=== PATIENT | female | born 1950 | race Two or more races ===

== ENCOUNTER 2022-07-16 22:07 | Inpatient (IN) | payer MEDICARE, OTHER ==
[~2022-07-16] VITALS: Ht 149.9 cm; Wt 70.3 kg
[2022-07-16] MEDS ORDERED: OLANZAPINE 10 MG VIAL IM ONE ×2 (22:17→22:30)
--- NOTE | 2022-07-16 22:25 | NUR ---
Pt medically cleared by Dr. Garza.
[2022-07-16] MEDS ORDERED: QUET25TA PO (22:28)
[2022-07-16] MEDS ORDERED: FAMO20TA8 PO (22:28)
[2022-07-16] MEDS ORDERED: DIPH-530 PO (22:28)
[2022-07-16] MEDS ORDERED: LORA0.5T48 PO (23:36)
--- NOTE | 2022-07-16 23:40 | NUR ---
Gave report to An.
[2022-07-16 23:50] VITALS: BP 132/110
--- NOTE | 2022-07-16 23:58 | NUR ---
Pt transferred to MHU. Pt arrived to unit safely. All Pt belongings with Pt in MHU.
[2022-07-17] MEDS ORDERED: ACETAMINOPHEN 325 MG TABLET PO PRN (00:15)
[2022-07-17] MEDS ORDERED: MAG HYDROX/AL HYDROX/SIMETH 30 ML LIQUID UDC PO PRN (00:15)
[2022-07-17] MEDS ORDERED: MAGNESIUM HYDROXIDE 30 ML LIQUID UDC PO PRN (00:15)
[2022-07-17] MEDS: TEMAZEPAM 7.5 MG CAPSULE PO PRN ×2 (01:53→21:04)
--- NOTE | 2022-07-17 03:30 | NUR ---
GPS ADMISSION : Patient is a 71 year old female, brought to [place] ED by ambulance from [facility]. Patient is on a 5150 for GD. Per the hold, this patient went to the ER making delusional statements such as " There is a tube up my anus. There is a chip in my head. " When in our Emergency Department , the patient received a IM injection of Zyprexa 10 mg. This had zero affect on the patient. Upon face to face evaluation , the patient is restless, confused, aggressive and will not follow direction. The Tele-renovation plant supervisor was used to communicate with the patient d/t she is primarily Romanian speaking but can speak some Pashto as well. The renovation plant supervisor # [id number], was utilized to explain the Unit and the situation of the hold. The Advisement and Plan of care were discussed. The patient was given an opportunity to ask questions but unfortunately it became quit apparent to this senior mortgage underwriter and other staff, that this patient is forgetful , non compliant and resistant to care. A patients rights handbook was provided. It is difficult to reorient, redirect or calm this patient down. The SOLE LAYER Tena Riddle was called 2 times, but no response or call back received. The patient has had zero sleep and continues to be restless , despite PRN medications. Safety Stratiges are in place.
[2022-07-17 04:30] VITALS: BP 140/71
[2022-07-17] MEDS: LORAZEPAM 1 MG TABLET PO PRN ×2 (06:07→19:03)
[2022-07-17 08:01] VITALS: BP 110/56
--- NOTE | 2022-07-17 11:58 | NUR ---
Gps/Senior Cost Accountant- Unable to get informations at this time sleeping arousable, but goes right back to sleep. no signs of any distress, will attempt to wake up patient at a later time, report obtained from previous shift patient has no sleep from last night
[2022-07-17] MEDS: risperiDONE-M 0.5 MG TAB.RAPDIS PO SCH ×2 (14:43→21:04)
--- NOTE | 2022-07-17 15:05 | NUR ---
Gps/Lozenge Dough Mixer- Offered ativan 1 mg po , refused, , patient was restless, wanders to other patient's room, constantly needing to be redirected. pacing around. Safety reviewed continue to emphasized. Set up with her hygiene . Requested shower, when taken to shower room, patient refused to shower, Confused, was called able to talked to patient for few minutes but patient hanged up on him. Redirected back to her room, reoriented from time to time.
--- NOTE | 2022-07-17 15:05 | NUR ---
Gps/Shirt Cleaner- Medication -Ativan 1 mg po wasted w/ RN Rocio (float from 3rd floor) patient refused
[2022-07-17 16:07] VITALS: BP 104/55
[2022-07-17] MEDS: FAMOTIDINE 20 MG TABLET PO SCH (16:41)
--- NOTE | 2022-07-17 18:49 | NUR ---
Gps/Ekg Monitor Tech- Nephew called want to put Roland (Niece) as one of the personnel officer r/t patient;s does not speak Guatemalan ([phone])
[2022-07-17 19:43] VITALS: BP 112/66
--- NOTE | 2022-07-18 02:54 | NUR ---
Patient wondered around the fraser at the beginning of the shift. Disoriented and uncooperative. This insurance underwriter sales had difficulty when administering the PM medications. The patient required education and encouragement for a good bit of time. The patient continues to be delusional, noncooperative, hard to redirect, paranoid and confused. Safety Stratiges are in place. Continuing to monitor closely for compliance and behavior escalation.
--- NOTE | 2022-07-18 07:00 | NUR ---
GPS Nursing notes: Patient in room awake with no S/S of discomforts noted. denies pain or discomforts.
[2022-07-18 07:47] VITALS: BP 156/92
[2022-07-18] MEDS: risperiDONE-M 0.5 MG TAB.RAPDIS PO SCH ×3 (08:00→20:21)
--- NOTE | 2022-07-18 08:37 | NUR ---
GPS Nursing notes: 5250 [facility] Request: Staff gave a copy of 5250 to patient. Explained 5250 and informed patient that a certification review hearing will be held within four days and patient 's right advocate will call her to provide assistance with the hearing and to answer her questions. The court has been notified of this certification via [facility] portal on this day.
[2022-07-18] MEDS: FAMOTIDINE 20 MG TABLET PO SCH ×2 (08:54→17:00)
[2022-07-18] MEDS ORDERED: LORAZEPAM 1 MG TABLET PO PRN (09:15)
--- NOTE | 2022-07-18 14:04 | NUR ---
GPS: Nursing Notes: Thought Disorder: Patient is awake and responding to her name, impaired judgment, poor impulse control, refusing her medications, isolative and withdrawn in her room, stated "I am hearing voices...No, I am not taking those pills..", encouraged with her and social and human services assistant to take her medication several times during the day, but continue to refuse her medication, gets easily anxious when redirected, unable to formulate a viable plan for self care, continue to monitor for safety, continue with treatment plan.
--- NOTE | 2022-07-18 14:42 | NUR ---
JULIANNE Initial Discharge Note: Pt currently resides at home with her located at [address] [place] [address] [place] [phone] ([phone]). JULIANNE spoke with pt's , Efrain in person who stated to this SW to please help the pt with any treatment she needs. Maikolbaroncesilia stated everything she is stating is not the reality. As of now, pt's discharge remains to return home with her . JULIANNE will continue to work with pt, and MD to ensure a safe and proper discharge plan.
--- NOTE | 2022-07-18 14:43 | NUR ---
SW Family Contact: SW spoke with pt's , Efrain [phone] in person who stated to this SW to please help the pt with any treatment she needs. Efrain stated everything she is stating is not the reality. As of now, pt's discharge remains to return home with her .
[2022-07-18 16:30] VITALS: BP 203/134
[2022-07-18] MEDS: LORAZEPAM 0.5 MG TABLET PO PRN (16:57)
[2022-07-18] MEDS: CLONIDINE HCL 0.1 MG TABLET PO PRN (16:57)
[2022-07-18 18:29] VITALS: BP 127/77
[2022-07-18 19:50] VITALS: BP 123/64
--- NOTE | 2022-07-18 20:50 | NUR ---
Pt received socializing with peer. Pt refused scheduled PO medication. Risks and benefits explained but continued to refuse. Denies pain or discomfort. In no acute distress.
[2022-07-19 07:30] VITALS: BP 168/63
[2022-07-19] MEDS: risperiDONE-M 0.5 MG TAB.RAPDIS PO SCH ×4 (08:00→21:04)
[2022-07-19] MEDS: LORAZEPAM 0.5 MG TABLET PO PRN ×2 (08:27→21:05)
[2022-07-19] MEDS: FAMOTIDINE 20 MG TABLET PO SCH ×2 (08:29→16:04)
[2022-07-19] MEDS: CLONIDINE HCL 0.1 MG TABLET PO PRN ×3 (08:29→16:04)
[2022-07-19] MEDS ORDERED: METOPROLOL TARTRATE 25 MG TABLET PO ONE (09:00)
--- NOTE | 2022-07-19 09:41 | NUR ---
Clinical SW Note: Pt appeared verbally abusive, intrusive and threatening. Pt was yelling stating, "I will walk out of this door and none of you can stop me you understand me!?" Pt refused to step away from this SW after being asked and security was called. Pt continually stated, "I have no problem I will come after all of you when I get out!"
[2022-07-19] MEDS ORDERED: OLANZAPINE 10 MG VIAL IM STA (09:42)
--- NOTE | 2022-07-19 09:53 | NUR ---
Clinical SW Note: Pt appeared verbally abusive again in the SW's office asking to be let out. Pt yelled, "You told me I can leave yesterday and you lied to me!" Security was in SW's office to ensure safety protocols. Pt remained calm and stated "I will leave here soon and that's end of story!"
[2022-07-19] MEDS: BENZTROPINE MESYLATE 0.5 MG TABLET PO SCH ×2 (10:45→16:04)
[2022-07-19 11:54] VITALS: BP 135/69
--- NOTE | 2022-07-19 14:07 | NUR ---
GPS: Nursing Notes: Thought Disorder: Patient is awake and responding to her name, gets easily irritable when redirected, argumentative with the psychiatrist and socially responsible investment adviser this AM, unpredictable behavior, unable to formulate a viable plan for self care, selectively refusing her medications. Asking for a shower, but when staff set the shower the patient refused to shower. Refusing to participate in therapeutic groups, no interactions with peers, continue to monitor for safety, continue with treatment plan.
[2022-07-19 15:58] VITALS: BP 186/92
[2022-07-19 20:00] VITALS: BP 120/72
--- NOTE | 2022-07-19 20:00 | NUR ---
GPS: NURSING NOTE: PT AWAKE TALKING WITH PEERS. REFUSED EVENING MEDICATION OF BENARDRYL STATES: I HAVE NO ALLERGY'. PT ISOLATIVE IN ROOM WRITING.AND CAME OUT OF ROOM TO REQUEST BLANKETS. PT IS STILL ON A 14 DAY HOLD WHICH EXPIRES ON 08/01/2022. NO SIGNS OF RESPIRATORY DISTRESS NOTED. WILL CONTINUE TO MONITOR FOR FALL AND SAFETY ALONG WITH CONTINUING TREATMENT PLAN.
[2022-07-19] MEDS: diphenhydrAMINE 25 MG CAP PO PRN (21:05)
[2022-07-20 07:30] VITALS: BP 167/95
[2022-07-20] MEDS: risperiDONE-M 0.5 MG TAB.RAPDIS PO SCH ×4 (08:00→22:00)
[2022-07-20] MEDS: BENZTROPINE MESYLATE 0.5 MG TABLET PO SCH ×3 (09:00→17:00)
[2022-07-20] MEDS: CETIRIZINE HCL 10 MG TABLET PO SCH (09:00)
[2022-07-20] MEDS ORDERED: METOPROLOL TARTRATE 25 MG TABLET PO SCH (09:00)
[2022-07-20] MEDS: FAMOTIDINE 20 MG TABLET PO SCH ×2 (09:00→17:00)
--- NOTE | 2022-07-20 11:51 | NUR ---
Firearms Report: China And Silverware Salesperson completed and submitted a DOJ firearms report for 5150 grave disability certifications. A copy of report has been placed in patient chart.
--- NOTE | 2022-07-20 14:03 | NUR ---
JULIANNE PC Hearing: Patient had 5250 probable cause hearing today and it was upheld for a danger to others and grave disability.
[2022-07-20] MEDS: CLONIDINE HCL 0.1 MG TABLET PO PRN (15:09)
[2022-07-20 15:13] VITALS: BP 172/95
--- NOTE | 2022-07-20 15:18 | NUR ---
Received patient sleeping in her room. Patient is A/O X 2 - 3 to person, place. Patient is suspicious and selective with medications, refuses Psych medications and just takes Blood pressure medications. Patient is isolative, withdrawn, does not engage in group activities or conversations. Patient blood pressure is 172/95, PRN Clonidine 0.1 mg is given at 15:09, will be monitored for effectiveness. Patient is ambulatory, continent, does not require assistance with ADL. Patient is encourage to verbalize concerns. Fall and safety precautions implemented.
--- NOTE | 2022-07-20 15:29 | NUR ---
[facility] hearing is schedule for tomorrow 07/21/22 at 15:00, Psychiatrist was informed.
--- NOTE | 2022-07-20 15:33 | NUR ---
Clinical SW Note: Pt expressed to SW that she will not take the Risperdal because she is allergic to it and caused her a lot of anxiety. SW informed psychiatrist and nurses. Pt stated, "I will only take my daily medications and not psychotic because I don't have mental problems." Pt added, "No one can make me take any medication I don't want you understand me!? Not you, not the Doctor and not my " SW informed Psychiatrist, pts [facility] and nursing.
[2022-07-20 16:00] VITALS: BP 145/85
[2022-07-20 19:56] VITALS: BP 143/77
--- NOTE | 2022-07-20 21:41 | NUR ---
Patient requested [facility], notify Jose Alejo, with order of one time only, for tonight.
[2022-07-20] MEDS ORDERED: CETIRIZINE HCL 10 MG TABLET PO ONE (21:45)
[2022-07-20] MEDS: METOPROLOL TARTRATE 25 MG TABLET PO SCH (21:49)
[2022-07-20] MEDS: LORAZEPAM 0.5 MG TABLET PO PRN (22:06)
--- NOTE | 2022-07-20 22:30 | NUR ---
Patient awake refused resperdal pm dose, requested Ativan instead. Patient has own reason for not taking risperdal.
[2022-07-21] MEDS: risperiDONE-M 0.5 MG TAB.RAPDIS PO SCH ×4 (08:00→20:25)
[2022-07-21 08:25] VITALS: BP 149/78
[2022-07-21] MEDS: METOPROLOL TARTRATE 25 MG TABLET PO SCH ×2 (08:54→20:16)
[2022-07-21] MEDS: CETIRIZINE HCL 10 MG TABLET PO SCH (09:00)
[2022-07-21] MEDS: FAMOTIDINE 20 MG TABLET PO SCH ×2 (09:00→17:00)
[2022-07-21] MEDS: BENZTROPINE MESYLATE 0.5 MG TABLET PO SCH ×3 (09:00→17:00)
[2022-07-21] MEDS: LORAZEPAM 0.5 MG TABLET PO PRN ×2 (13:41→20:15)
[2022-07-21 15:16] VITALS: BP 151/85
--- NOTE | 2022-07-21 16:08 | NUR ---
Received patient awake in her room. Patient is A/O X 2 to person, place. Patient is argumentative, talkative when approached, confused and disorganized at times. 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 Patient is compliant with BP medications only. Active listening provided. Fall and safety precautions implemented.
[2022-07-21 19:52] VITALS: BP 169/77
[2022-07-21] MEDS: diphenhydrAMINE 25 MG CAP PO PRN (20:16)
--- NOTE | 2022-07-21 21:40 | NUR ---
Patient requested a" Lorazepam" an " Allergy medicine " and " Metoprol " at the start of the shift. The patients b/p was elevated at that time. The patient did however, adamantly refuse to take the PM Risperdal that is ordered , despite encouragement and education. This patient gets increasingly confused, uncooperative an easily irritated as the night progresses. Safety Stratiges are in place.. Reorientation and reassurance from the staff is ongoing.
[2022-07-22 08:00] VITALS: BP 164/96
[2022-07-22] MEDS: risperiDONE-M 0.5 MG TAB.RAPDIS PO SCH ×3 (08:00→21:00)
[2022-07-22] MEDS: METOPROLOL TARTRATE 25 MG TABLET PO SCH ×2 (08:13→21:09)
[2022-07-22] MEDS: BENZTROPINE MESYLATE 0.5 MG TABLET PO SCH ×3 (08:16→17:00)
[2022-07-22] MEDS: CETIRIZINE HCL 10 MG TABLET PO SCH ×2 (08:17→11:35)
[2022-07-22] MEDS: FAMOTIDINE 20 MG TABLET PO SCH ×2 (08:17→17:00)
[2022-07-22] MEDS: AMLODIPINE 5 MG TABLET PO SCH ×2 (11:00→11:13)
--- NOTE | 2022-07-22 14:44 | NUR ---
Received patient awake in her room. Patient is selective with medications, argumentative, suspicious, forgetful, preoccupied. Patient is A/O X 3 to person, place. Patient refuses Psych medications and Norvasc 5 mg in the morning. Patient states "I'm allergic to Norvasc, I prefer Clonidine or Metoprolol". Patient refuses scheduled Zyrtec 5 mg in the morning, but requested later on. Patient states "I touched klenex and now I'm itching because I'm allergic to it. I need Zyrtec". Patient is offered PRN Benadryl 25 mg but refused it. Patient states " I don't like Benadryl because makes me sleepy". Patient is given Zyrtec 5 mg at 11:35AM. Active listening provided. Fall and safety precautions implemented.
--- NOTE | 2022-07-22 15:14 | NUR ---
JULIANNE Discharge Update: JULIANNE spoke with pt's Efrain in person regarding pts hearing at 4pm today. Efrain is aware and agreeable for the hearing to take place to help treat the pt. JULIANNE will continue to keep the informed. Efrain stated the discharge plan for the pt to return home with him remains the same.
[2022-07-22] MEDS: LORAZEPAM 0.5 MG TABLET PO PRN (17:07)
--- NOTE | 2022-07-22 17:15 | NUR ---
Patient is given Ativan 0.5 mg for anxiety and agitation at 17:07, will be monitored for effectiveness.
[2022-07-22] MEDS: CLONIDINE HCL 0.1 MG TABLET PO PRN (18:13)
--- NOTE | 2022-07-22 18:18 | NUR ---
Patient is given PRN Clonidine 0.1 mg at 18:13 for BP of 182/92 P 76, will be monitored for effectiveness.
[2022-07-22 20:53] VITALS: BP 116/77
[2022-07-22] MEDS: diphenhydrAMINE 25 MG CAP PO PRN (21:09)
[2022-07-22] MEDS: OLANZAPINE 10 MG VIAL IM PRN (21:15)
--- NOTE | 2022-07-22 21:58 | NUR ---
Patient refused to take the PO Risperdal , despite education or encouragement and chose to receive the IM injection Zyprexa per the [facility] order instead. The patient complied freely and no security was needed. VS are stable and the injection was tolerated well. Safety Stratiges remain in place. The patient was anxious at the start of the shift, but this commercial real estate underwriter has been able to calm the patient and redirect her with ease. No acute issues noted at this time. Reassurance provided as needed.
[2022-07-23 07:34] VITALS: BP 165/86
[2022-07-23] MEDS ORDERED: risperiDONE-M 0.5 MG TAB.RAPDIS PO SCH (08:00)
[2022-07-23] MEDS: CLONIDINE HCL 0.1 MG TABLET PO PRN ×2 (08:45→17:33)
[2022-07-23] MEDS: LORAZEPAM 0.5 MG TABLET PO PRN (08:45)
[2022-07-23] MEDS: CETIRIZINE HCL 10 MG TABLET PO SCH (08:46)
[2022-07-23] MEDS: BENZTROPINE MESYLATE 0.5 MG TABLET PO SCH ×3 (08:46→17:00)
[2022-07-23] MEDS: METOPROLOL TARTRATE 25 MG TABLET PO SCH ×2 (08:46→20:56)
[2022-07-23] MEDS: FAMOTIDINE 20 MG TABLET PO SCH ×2 (08:47→17:00)
[2022-07-23] MEDS: OLANZAPINE 10 MG VIAL IM PRN ×3 (08:47→20:57)
[2022-07-23] MEDS: AMLODIPINE 5 MG TABLET PO SCH (08:47)
[2022-07-23] MEDS: ENSURE ENLIVE (VAN) 240 ML LIQUID PO SCH (11:56)
--- NOTE | 2022-07-23 15:42 | NUR ---
GPS: Nursing Notes: Thought Disorder: Patient is awake and responding to her name, gets easily irritable when redirected, continue to refuse her Risperdal PO. Per Carlos and psychiatrist's order, staff given her Zyprexa IM, no interactions with peers, poor anger management at times, unable to formulate a viable plan for self care, continue to monitor for safety, continue with treatment plan.
[2022-07-23 16:07] VITALS: BP 154/87
[2022-07-23] MEDS: risperiDONE-M 0.5 MG TAB.RAPDIS PO SCH ×2 (17:00→20:56)
[2022-07-23 20:00] VITALS: BP 113/65
[2022-07-23] MEDS: diphenhydrAMINE 25 MG CAP PO PRN (20:56)
--- NOTE | 2022-07-23 21:35 | NUR ---
Patient is suspicious, angry and argumentative. Refused to take PO Risperdal but willingly did take the IM injection of Zyprexa per Carlos. This teletypewriter installer spent time to reassure and deescalate the patient by speaking calmly and making every effort to understand her needs at that time. Unfortunately, the patient is annoyed with the room mate and visa versa. VS are stable and safety stratiges remain in place. The patient refused to eat snack, however a pitcher of water was provided and the patient is drinking fluids well. Continuing with monitoring this patient irritable moods for possible behavior escalation and for medication compliance. Reorientation to the environment and plan of care are ongoing
[2022-07-24 07:43] VITALS: BP 144/73
[2022-07-24] MEDS: BENZTROPINE MESYLATE 0.5 MG TABLET PO SCH ×3 (08:51→16:58)
[2022-07-24] MEDS: ENSURE ENLIVE (VAN) 240 ML LIQUID PO SCH (08:52)
[2022-07-24] MEDS: AMLODIPINE 5 MG TABLET PO SCH (08:54)
[2022-07-24] MEDS: METOPROLOL TARTRATE 25 MG TABLET PO SCH ×2 (08:54→20:35)
[2022-07-24] MEDS: CETIRIZINE HCL 10 MG TABLET PO SCH (08:54)
[2022-07-24] MEDS: risperiDONE-M 0.5 MG TAB.RAPDIS PO SCH ×5 (08:54→21:00)
[2022-07-24] MEDS: FAMOTIDINE 20 MG TABLET PO SCH ×2 (08:54→16:58)
[2022-07-24] MEDS: OLANZAPINE 10 MG VIAL IM PRN ×3 (08:55→21:09)
[2022-07-24] MEDS: CLONIDINE HCL 0.1 MG TABLET PO PRN (13:22)
[2022-07-24] MEDS: LORAZEPAM 0.5 MG TABLET PO PRN (13:22)
--- NOTE | 2022-07-24 14:06 | NUR ---
GPS: Nursing Notes: Thought Disorder: Patient is awake and responding to her name, refusing her Risperdal PO, but willing to take Zyprexa IM per Rifly and psychiatrist's order, following staff directions, refusing to participate in therapeutic groups, gets easily irritable when redirected, unable to formulate a viable plan for self care, unkempt appearance, denies AH/VH, continue to monitor for safety, continue with treatment plan.
[2022-07-24 16:14] VITALS: BP 132/80
[2022-07-24 19:53] VITALS: BP 140/71
--- NOTE | 2022-07-24 23:22 | NUR ---
GPS: NURSING NOTE: THOUGHT DISORDER: PT IS IN ROOM ISOLATIIVE FROM PEERS MINIMAL INTERACTION WITH PEERS. AFTERWARDS PATIENT TOOK MEDICATION BUT RISPERDONE 1MG PATIENT REISE STATES: I WILL TAKE INJECTION NOT RSIPERDONE. LATER DURING SHIFT PT REQUESTED INFORMATION ON RISPERDONE. INFORMED PATIENT I WILL GET FOR IN THE AM OR HAVE AM SHIFT TO GIVE INFORMATION ON MEDICATION. PT IS DISHEVELED WON'T COMB HAIR WILL CONTINUE PLAN OF CARE AND GO BACK IN ROOM TO ASSIST PATIENT.
[2022-07-25 08:17] VITALS: BP 172/89
[2022-07-25] MEDS: BENZTROPINE MESYLATE 0.5 MG TABLET PO SCH ×3 (08:39→16:31)
[2022-07-25] MEDS: ENSURE ENLIVE (VAN) 240 ML LIQUID PO SCH (08:39)
[2022-07-25] MEDS: CETIRIZINE HCL 10 MG TABLET PO SCH (08:40)
[2022-07-25] MEDS: METOPROLOL TARTRATE 25 MG TABLET PO SCH ×2 (08:40→20:47)
[2022-07-25] MEDS: AMLODIPINE 5 MG TABLET PO SCH (08:42)
[2022-07-25] MEDS: risperiDONE-M 0.5 MG TAB.RAPDIS PO SCH ×3 (08:42→20:47)
[2022-07-25] MEDS: FAMOTIDINE 20 MG TABLET PO SCH ×2 (08:42→16:32)
[2022-07-25] MEDS: OLANZAPINE 10 MG VIAL IM PRN ×2 (08:43→16:44)
[2022-07-25] MEDS: CLONIDINE HCL 0.1 MG TABLET PO PRN (08:43)
[2022-07-25] MEDS: LORAZEPAM 0.5 MG TABLET PO PRN ×2 (08:51→20:45)
[2022-07-25 09:30] VITALS: BP 128/87
--- NOTE | 2022-07-25 13:39 | NUR ---
GPS: Nursing Notes: Thought Disorder: Patient is awake and responding to her name, continue to refuse her Risperdal PO. Patient preferred to have Zyprexa IM per psychiatrist's order and upheld Carlos, unable to formulate a viable plan for self care, internally preoccupied, but denies AH/VH, unkempt appearance, no interactions with peers, showered today, no aggressive behavior noted, continue to monitor for safety, continue with treatment plan.
[2022-07-25 16:18] VITALS: BP 142/63
[2022-07-25 19:46] VITALS: BP 134/83
--- NOTE | 2022-07-26 01:27 | NUR ---
Patient was willing to take the PO Risperdal , instead of the IM injection, as ordered per the Riese. The patient ate a snack, asked for " Lorazepam " by name , and has been calm with this marine underwriter. No issues with the roommate noticed tonight. The patient is ambulatory in the unit, gait steady. Education, encouragement and reorientation is ongoing. Safety Stratiges are in place. No acute issues noted at this time. VS were stable this PM. Continuing to monitor for irritability , delusions and medication compliance.
[2022-07-26] MEDS: diphenhydrAMINE 25 MG CAP PO PRN ×2 (04:35→21:24)
[2022-07-26] MEDS: LORAZEPAM 0.5 MG TABLET PO PRN (04:36)
[2022-07-26 08:02] VITALS: BP 170/83
[2022-07-26] MEDS: CLONIDINE HCL 0.1 MG TABLET PO PRN (08:48)
[2022-07-26] MEDS: CETIRIZINE HCL 10 MG TABLET PO SCH (08:48)
[2022-07-26] MEDS: ENSURE ENLIVE (VAN) 240 ML LIQUID PO SCH (08:49)
[2022-07-26] MEDS: METOPROLOL TARTRATE 25 MG TABLET PO SCH ×2 (08:49→21:09)
[2022-07-26] MEDS: FAMOTIDINE 20 MG TABLET PO SCH ×2 (08:49→16:24)
[2022-07-26] MEDS: AMLODIPINE 5 MG TABLET PO SCH (08:49)
[2022-07-26] MEDS: BENZTROPINE MESYLATE 0.5 MG TABLET PO SCH ×3 (08:49→16:24)
[2022-07-26] MEDS: risperiDONE-M 0.5 MG TAB.RAPDIS PO SCH ×2 (08:50→16:24)
[2022-07-26] MEDS: OLANZAPINE 10 MG VIAL IM PRN ×2 (08:59→17:21)
[2022-07-26] MEDS ORDERED: TEMAZEPAM 7.5 MG CAPSULE PO PRN (09:30)
[2022-07-26] MEDS ORDERED: PALIPERIDONE PALMITATE 117 MG/0.75 ML SYRINGE IM ONE (09:30)
[2022-07-26] MEDS ORDERED: PALIPERIDONE PALMITATE 234 MG/1.5 ML IM ONE (10:00)
--- NOTE | 2022-07-26 14:28 | NUR ---
GPS: Nursing Notes: Thought Disorder: Patient is awake and responding to her name, argumentative this am, stated "Risperdal no good..No sleep last night.." continue to refuse Risperdal this AM, given Zyprexa IM per Rifly and psychiatrist's order, no s/e form medication noted, needs prompting to participate in therapeutic groups, ambulatory and continent with BM and urine, unable to formulate a viable plan for self care, continue to monitor for safety, continue with treatment plan.
[2022-07-26 16:09] VITALS: BP 148/89
[2022-07-26 20:00] VITALS: BP 140/75
--- NOTE | 2022-07-27 06:31 | NUR ---
Patient was calm and cooperative last night. A PRN Benadryl was given per the patients request. A snack was provided and the patient slept 6.15 so far. No acute behavioral problems observed. Safety Stratiges are in place. Continuing with plan of care, too encourage medication compliance and assist patient with any needs. Reassurance and reorientation is ongoing.
[2022-07-27 07:45] VITALS: BP 146/73
[2022-07-27] MEDS: BENZTROPINE MESYLATE 0.5 MG TABLET PO SCH ×3 (08:40→17:00)
[2022-07-27] MEDS: METOPROLOL TARTRATE 25 MG TABLET PO SCH ×2 (08:41→20:59)
[2022-07-27] MEDS: CETIRIZINE HCL 10 MG TABLET PO SCH (08:43)
[2022-07-27] MEDS: risperiDONE-M 0.5 MG TAB.RAPDIS PO SCH ×2 (08:46→17:00)
[2022-07-27] MEDS: FAMOTIDINE 20 MG TABLET PO SCH ×2 (08:46→17:00)
[2022-07-27] MEDS: AMLODIPINE 5 MG TABLET PO SCH (08:47)
[2022-07-27] MEDS: ENSURE ENLIVE (VAN) 240 ML LIQUID PO SCH (09:00)
[2022-07-27] MEDS: OLANZAPINE 10 MG VIAL IM PRN ×2 (09:00→17:36)
--- NOTE | 2022-07-27 12:06 | NUR ---
JULIANNE Discharge Update: JULIANNE spoke with pt's , Efrain ([phone]) and stated that pt is cleared for discharge to return home with her located at [address] [place] [address] [place] [address] ([phone]) next Monday08/02/22. JULIANNE stated per psychiatrist, Dr. Calderón, pt will receive her second dose of Invega Sustenna on Monday and be able to discharge on Monday. Efrain was grateful for the update and stated he will be able to provide transportation home at 12PM on Monday.
[2022-07-27 15:17] VITALS: BP 152/85
--- NOTE | 2022-07-27 18:10 | NUR ---
Received pt in room , Pt is argumentative, when giving her medications. Pt is selective with medication. Pt stated " Im allergic Risperdal and Zyprexa." Pt refuse Risperdal, Pt stated " i do not take that is no good" and was given Zyprexa IM per Riese and psychiatrist's order, no signs and symptoms from medication noted, no sings and symptoms of an allergic reaction noted, no acute distress noted. Pt needs prompting to participate in therapeutic groups, ambulatory . Pt is unable to formulate a viable plan for self care. Reassurance provided. Continue to monitor for safety, continue with treatment plan.
[2022-07-27 19:53] VITALS: BP 198/102
[2022-07-27] MEDS: CLONIDINE HCL 0.1 MG TABLET PO PRN (20:07)
[2022-07-27 20:50] VITALS: BP 173/89
[2022-07-27] MEDS: LORAZEPAM 0.5 MG TABLET PO PRN (22:19)
--- NOTE | 2022-07-28 06:07 | NUR ---
Patients blood pressure was elevated at the start of the shift. A PRN Clonidine was given. At the post check, the blood pressure remained elevated. The routine 2100 dose of Metoprol was administered. 40 minutes later, the blood pressure came down to a normal range of 138/ 72. ( see VS flow sheet for exact readings). Safety Stratiges are in place. Patient slept 4.30 hours. Patient refused to take a sleeping pill ,despite encouragement and education on the importance of rest.
[2022-07-28 07:30] VITALS: BP 141/65
[2022-07-28] MEDS: BENZTROPINE MESYLATE 0.5 MG TABLET PO SCH ×3 (09:00→17:00)
[2022-07-28] MEDS: risperiDONE-M 0.5 MG TAB.RAPDIS PO SCH ×2 (09:00→17:00)
[2022-07-28] MEDS: CETIRIZINE HCL 10 MG TABLET PO SCH (09:00)
[2022-07-28] MEDS: FAMOTIDINE 20 MG TABLET PO SCH ×2 (09:00→17:00)
[2022-07-28] MEDS: AMLODIPINE 5 MG TABLET PO SCH (09:00)
[2022-07-28] MEDS: METOPROLOL TARTRATE 25 MG TABLET PO SCH ×2 (09:14→20:42)
[2022-07-28] MEDS: OLANZAPINE 10 MG VIAL IM PRN ×2 (09:31→17:52)
[2022-07-28 15:22] VITALS: BP 151/74
--- NOTE | 2022-07-28 15:48 | NUR ---
JULIANNE Discharge Update: JULIANNE contacted pt's , Alia ([phone]) and left a voicemail for a call back to discuss pt's discharge plan. SW will continue to follow-up. Per pt, she does not have a DPOA and stated her [place] [address]. JULIANNE will continue to contact to confirm the discharge plan prior to discharge.
--- NOTE | 2022-07-28 15:50 | NUR ---
SW Discharge Update: Pt is cleared for discharge to return home with her , Efrain ([phone]) located at [address] [place] [address] [place] [address] next Monday08/02/22. Per psychiatrist, Dr. Calderón, pt will receive her second dose of Invega Sustenna on Monday and be able to discharge on Monday. Efrain was grateful for the update and stated he will be able to provide transportation home at 12PM on Monday.
--- NOTE | 2022-07-28 16:41 | NUR ---
Gps/Mold Capper- Had been in and out of her group activity, selective with routine oral meds, reviewed with patient . Claimed she's allergic to certain medications hesitancy noted, patient reassured.Patient claimed she felt light headed after her zyprexa 5 mg IM this am , v/s was stable, claimed she does not need to take any injections , gets anxious , worried about all her medications. reviewed with patient
[2022-07-28 20:01] VITALS: BP 163/74
[2022-07-28] MEDS: LORAZEPAM 0.5 MG TABLET PO PRN (20:47)
--- NOTE | 2022-07-28 20:53 | NUR ---
Took PO medications without difficulty.
[2022-07-29 08:05] VITALS: BP 167/86
[2022-07-29] MEDS: CETIRIZINE HCL 10 MG TABLET PO SCH (09:00)
[2022-07-29] MEDS: AMLODIPINE 5 MG TABLET PO SCH (09:00)
[2022-07-29] MEDS: FAMOTIDINE 20 MG TABLET PO SCH ×2 (09:00→17:00)
[2022-07-29] MEDS: BENZTROPINE MESYLATE 0.5 MG TABLET PO SCH ×3 (09:00→17:00)
[2022-07-29] MEDS: risperiDONE-M 0.5 MG TAB.RAPDIS PO SCH ×2 (09:00→17:00)
[2022-07-29] MEDS: OLANZAPINE 10 MG VIAL IM PRN ×2 (10:02→17:43)
[2022-07-29] MEDS: METOPROLOL TARTRATE 25 MG TABLET PO SCH ×2 (10:24→21:19)
--- NOTE | 2022-07-29 15:04 | NUR ---
Gps/Box Icer- Interacting fairly well with her roommate. came in to visit during the visiting hours was able to talked to Dr Calderón
[2022-07-29 15:46] VITALS: BP 166/81
[2022-07-29 19:30] VITALS: BP 172/77
[2022-07-29] MEDS: CLONIDINE HCL 0.1 MG TABLET PO PRN (20:03)
--- NOTE | 2022-07-29 20:03 | NUR ---
Clonidine 0.1mg given for blood pressure 172/77 rechecked blood pressure at this time is 139/78 HR 81.
[2022-07-29] MEDS: LORAZEPAM 0.5 MG TABLET PO PRN (21:19)
[2022-07-29] MEDS: diphenhydrAMINE 25 MG CAP PO PRN (23:00)
[2022-07-30 07:52] VITALS: BP 171/96
[2022-07-30] MEDS: BENZTROPINE MESYLATE 0.5 MG TABLET PO SCH ×3 (09:07→17:00)
[2022-07-30] MEDS: FAMOTIDINE 20 MG TABLET PO SCH ×2 (09:07→17:00)
[2022-07-30] MEDS: AMLODIPINE 5 MG TABLET PO SCH (09:08)
[2022-07-30] MEDS: METOPROLOL TARTRATE 25 MG TABLET PO SCH ×2 (09:08→20:45)
[2022-07-30] MEDS: CETIRIZINE HCL 10 MG TABLET PO SCH (09:09)
[2022-07-30] MEDS: risperiDONE-M 0.5 MG TAB.RAPDIS PO SCH ×2 (09:10→17:27)
--- NOTE | 2022-07-30 15:30 | NUR ---
Gps/Sales Account Manager- Michael velasco to visit patient this pm. Had been interacting fairly welll, making her simple needs known . Able to take routine am meds . administered by the Mold Bunch Trimmer with supervision fro their instructor .
[2022-07-30 16:29] VITALS: BP 137/67
[2022-07-30 20:23] VITALS: BP 134/75
[2022-07-30] MEDS: LORAZEPAM 0.5 MG TABLET PO PRN (21:50)
--- NOTE | 2022-07-31 03:31 | NUR ---
Patient has been calm and cooperative. Requested Ativan once earlier , around bedtime. Patient ate a snack, took a shower and has been sleeping on and off. B/P was WNL and is being monitored and treated as needed. Safety Stratiges are in place. The patient does get more confused as the night progresses, but responds well to reorientation and redirection.No acute behavioral issues noted at this time.
[2022-07-31 07:57] VITALS: BP 156/77
[2022-07-31] MEDS: FAMOTIDINE 20 MG TABLET PO SCH ×2 (09:00→16:26)
[2022-07-31] MEDS: CETIRIZINE HCL 10 MG TABLET PO SCH (09:00)
[2022-07-31] MEDS: AMLODIPINE 5 MG TABLET PO SCH (09:00)
[2022-07-31] MEDS: BENZTROPINE MESYLATE 0.5 MG TABLET PO SCH ×3 (09:00→16:26)
[2022-07-31] MEDS: risperiDONE-M 0.5 MG TAB.RAPDIS PO SCH ×2 (09:20→17:46)
[2022-07-31] MEDS: METOPROLOL TARTRATE 25 MG TABLET PO SCH ×2 (09:21→19:39)
[2022-07-31 16:13] VITALS: BP 146/68
[2022-07-31] MEDS: LORAZEPAM 0.5 MG TABLET PO PRN (19:40)
[2022-07-31 19:51] VITALS: BP 154/74
[2022-08-01] MEDS: CLONIDINE HCL 0.1 MG TABLET PO PRN ×2 (04:47→22:45)
[2022-08-01 06:34] VITALS: BP 137/72
--- NOTE | 2022-08-01 06:40 | NUR ---
Patient slept 6.45 hours. A PRN for HTN was given earlier. Pre medication b/p was 160/75. Post see VS section of the chart. The patient was cooperative but anxious at times. Safety Stratiges are in place. Continuing to provide reorientation and reassurance when needed. No behavior escalation noted.
[2022-08-01 07:41] LABS: HEMATOCRIT 39.1 % (31.2-41.9); MEAN CORPUSCULAR HEMOGLOBIN 27.8 uug (24.7-32.8); MEAN CORPUSCULAR VOLUME 85.4 fL (75.5-95.3); PLATELET COUNT (AUTO) 128 K/uL (179-408)
[2022-08-01 07:54] VITALS: BP 119/49
[2022-08-01 07:56] LABS: BILIRUBIN,TOTAL 0.2 mg/dL (0.2-1.0); CREATININE 0.9 mg/dL (0.6-1.3); MAGNESIUM 1.9 mg/dL (1.8-2.4); PHOSPHOROUS 3.7 mg/dL (2.5-4.9); TOTAL PROTEIN, SERUM 5.7 g/dL (6.4-8.2)
[2022-08-01] MEDS: CETIRIZINE HCL 10 MG TABLET PO SCH (08:26)
[2022-08-01] MEDS: METOPROLOL TARTRATE 25 MG TABLET PO SCH ×2 (08:26→20:00)
[2022-08-01] MEDS: FAMOTIDINE 20 MG TABLET PO SCH ×2 (08:27→16:43)
[2022-08-01] MEDS: risperiDONE-M 0.5 MG TAB.RAPDIS PO SCH ×2 (08:27→16:42)
[2022-08-01] MEDS: AMLODIPINE 5 MG TABLET PO SCH (08:27)
[2022-08-01] MEDS: BENZTROPINE MESYLATE 0.5 MG TABLET PO SCH ×3 (08:28→16:43)
[2022-08-01] MEDS ORDERED: PALIPERIDONE PALMITATE 234 MG/1.5 ML IM ONE (09:00)
--- NOTE | 2022-08-01 11:55 | NUR ---
GPS: Nursing Notes: Thought Disorder: Patient is awake and responding to his name, cooperative with nursing care, selectively compliant with her medications, needs a lot of prompting to participate in therapeutic groups, unable to formulate a viable plan for self care, brighter affect, continue to monitor for safety, continue with treatment plan.
[2022-08-01 15:20] VITALS: BP 123/58
[2022-08-01 20:00] VITALS: BP 109/68
[2022-08-01] MEDS: LORAZEPAM 0.5 MG TABLET PO PRN (21:42)
--- NOTE | 2022-08-01 22:15 | NUR ---
Pt c/o anxiety. Administered Ativan 0.5mg PO as ordered with good effect. Pt lying in bed sleeping comfortably at this time. In no acute distress.
[2022-08-02 07:58] VITALS: BP 142/72
[2022-08-02] MEDS: CETIRIZINE HCL 10 MG TABLET PO SCH (08:12)
[2022-08-02] MEDS: risperiDONE-M 0.5 MG TAB.RAPDIS PO SCH (08:12)
[2022-08-02] MEDS: AMLODIPINE 5 MG TABLET PO SCH (08:12)
[2022-08-02 08:13] VITALS: BP 142/72
[2022-08-02] MEDS: FAMOTIDINE 20 MG TABLET PO SCH (08:13)
[2022-08-02] MEDS: METOPROLOL TARTRATE 25 MG TABLET PO SCH (08:13)
[2022-08-02] MEDS: BENZTROPINE MESYLATE 0.5 MG TABLET PO SCH (08:13)
[2022-08-02] MEDS: LORAZEPAM 0.5 MG TABLET PO PRN (09:54)
--- NOTE | 2022-08-02 10:03 | NUR ---
JULIANNE Discharge Note: Pt will be discharged home located at [address] [facility] [address] [place] [address] via pts , Steph private vehicle transportation at 12PM. JULIANNE spoke with Efrain who states he is ready to accept the patient today. Pt is aware and agreeable with discharge plan. Pt is alert and oriented x4 and is able to plan for self-care at home with her familys help. Pt denies any suicidal or homicidal ideation. Pt will follow-up with her outpatient psychiatrist, Dr. Owen on Monday at 12:30PM located at [address], [place] [address] ([phone]). Pt will follow-up with her outpatient Reinforcer, Dr. Huma Mccarthy [address] [place] [phone] ([phone]) as well upon discharge. Pt presents with calm mood and congruent affect.
--- NOTE | 2022-08-02 12:25 | NUR ---
GPS: Nursing Notes: Discharge Notes: Patient is awake and responding to her name, cooperative with nursing care, compliant with her medications, following staff directions, denies SI/HI, denies AH/VH, denies pain or discomfort, denies SOB. transported home via private vehicle and - Crystal picked her up. Took all her belongings and valuables with her. Patient will follow-up with her outpatient psychiatrist, Dr. Owen on Monday at 12:30PM located at [address] [facility] [address], [place] [address] ([phone]). Pt will follow-up with her outpatient Marketing Forecaster, Dr. Huma Mccarthy [address] [place] [phone] ([phone]) for aftercare.
[2022-08-02] MEDS ORDERED: BENZTROPINE MESYLATE 0.5 MG TABLET PO SCH (17:00)
[2022-08-02] MEDS ORDERED: risperiDONE-M 0.5 MG TAB.RAPDIS PO SCH (17:00)
== END 2022-08-02 12:15 | disposition home or self-care (01) | DRG 885 ==
LOC: ER 22:10 → GPS 23:38
PROVIDERS: ADMIT Psychiatry & Neurology Psychosomatic Medicine; ATTEND Registered Nurse
DX: F25.9 Schizoaffective disorder, unspecified (principal); D68.59 Other primary thrombophilia; E44.0 Moderate protein-calorie malnutrition; Z86.011 Personal history of benign neoplasm of the brain; F50.89 Other specified eating disorder; Z68.31 Body mass index [BMI] 31.0-31.9, adult; Z88.1 Allergy status to other antibiotic agents; Z91.018 Allergy to other foods; I10 Essential (primary) hypertension; E66.9 Obesity, unspecified; Z91.148 Patient's other noncompliance with medication regimen for other reason; E88.09 Other disorders of plasma-protein metabolism, not elsewhere classified; R41.9 Unspecified symptoms and signs involving cognitive functions and awareness; Z90.49 Acquired absence of other specified parts of digestive tract; Z98.890 Other specified postprocedural states
CPT/HCPCS: 36415; 83735; 84100; 85025; 93005; A4663; J2358; J2426; Q0163